=== PATIENT | male | born 1985 | race Caucasian/White ===

== ENCOUNTER 2019-08-21 15:29 | Emergency (ER) | payer OTHER, BC ==
[~2019-08-21] VITALS: Ht 177.8 cm; Wt 136.0 kg
[~2019-08-21 15:29] MED LIST: PENI500T PO
[2019-08-21 15:46] VITALS: BP 125/74
[2019-08-21] MEDS ORDERED: ONDANSETRON ODT 4 MG TAB.RAPDIS ONE (15:53)
[2019-08-21] MEDS ORDERED: ONDANSETRON ODT 4 MG TAB.RAPDIS PO ONE (16:00)
--- NOTE | 2019-08-21 16:17 | PHYS DOC ---
Past History Past Medical History: No Pertinent History Past Surgical History: Other Additional Past Surgical Histo: right foot ortho repair Smoking: Less than 1pk/day Alcohol Use: None Drug Use: None Adult General Chief Complaint Chief Complaint: LACERATION/AVULSION HPI HPI 33-year-old male presents with right thumb laceration. The patient was trying to take apart a sprinkler head at the [employer] where he works when he slipped and it lacerated his right thumb. They attempted to make the bleeding stopped at the penitentiary. There was a mild to moderate amount of bleeding and the patient passed out while sitting in a chair. The patient admits that he does not do well with blood. He did not hurt himself when he passed out. When he woke up, he was feeling fine. He is only feeling mildly nauseous at this time. Patient denies any other injuries or complaints. Review of Systems Review of Systems Constitutional: Denies fever or chills [] Eyes: Denies change in visual acuity, redness, or eye pain [] HENT: Denies nasal congestion or sore throat [] Respiratory: Denies cough or shortness of breath [] Cardiovascular: No additional information not addressed in HPI [] GI: Denies abdominal pain, nausea, vomiting, bloody stools or diarrhea [] : Denies dysuria or hematuria [] Musculoskeletal: Denies back pain or joint pain [] Integument: Laceration of the right thumb[] Neurologic: Denies headache, focal weakness or sensory changes [] Endocrine: Denies polyuria or polydipsia [] All other systems were reviewed and found to be within normal limits, except as documented in this note. Current Medications Current Medications Current Medications Medications (Trade) Dose Ordered Sig/Gerald Start Time Stop Time Status Last Admin Dose Admin Ondansetron HCl (Zofran Odt) 4 mg 1X ONCE 08/21/19 16:00 08/21/19 16:09 DC 08/21/19 16:00 4 MG Allergies Allergies Allergies Coded Allergies Type Severity Reaction Last Updated Verified No Known Drug Allergies 07/08/16 No Physical Exam Physical Exam Constitutional: Well developed, well nourished, no acute distress, non-toxic appearance. [] HENT: Normocephalic, atraumatic, bilateral external ears normal, oropharynx moist, no oral exudates, nose normal. [] Eyes: PERRLA, EOMI, conjunctiva normal, no discharge. [] Neck: Normal range of motion, no tenderness, supple, no stridor. [] Cardiovascular:Heart rate regular rhythm, no murmur [] Lungs & Thorax: Bilateral breath sounds clear to auscultation [] Abdomen: Bowel sounds normal, soft, no tenderness, no masses, no pulsatile masses. [] Skin: 2 cm curvilinear laceration of the right thumb[] Back: No tenderness, no CVA tenderness. [] Extremities: No tenderness, no cyanosis, no clubbing, ROM intact, no edema. [] Neurologic: Alert and oriented X 3, normal motor function, normal sensory function, no focal deficits noted. [] Psychologic: Affect normal, judgement normal, mood normal. [] Current Patient Data Vital Signs Vital Signs Date Time Temp Pulse Resp B/P (MAP) Pulse Ox O2 Delivery O2 Flow Rate FiO2 08/21/19 15:46 97.9 68 14 125/74 (91) 96 Room Air EKG EKG [] Radiology/Procedures Radiology/Procedures [] Course & Med Decision Making Course & Med Decision Making Pertinent Labs and Imaging studies reviewed. (See chart for details) I was able to repair the patient's laceration was sutures. See laceration note for more details. His tetanus is not up-to-date. We updated in the emergency room. I will not place him on antibiotics at this time. [] Dragon Disclaimer Dragon Disclaimer This electronic medical record was generated, in whole or in part, using a voice recognition dictation system. Laceration Repair Lac Repair Indication: []2 cm curvilinear laceration of the right thumb Procedure: I obtained verbal consent from the patient for suture repair of his right thumb laceration. The wound was anesthetized with 1% lidocaine without epinephrine. Total of 2 mL was used. After good anesthesia was achieved, I thoroughly irrigated the wound with normal saline under pressure. There were no foreign bodies found. I repaired the wound with 3 4-0 Ethilon sutures. A clean, dry, nonadherent bandage was applied. Total repaired wound length: 2 cm Other Items: None The patient tolerated the procedure well. Complications: None. Departure Departure: Impression: Primary Impression: Laceration of right thumb Disposition: HOME, SELF-CARE Condition: IMPROVED Referrals: PCP,NO (PCP) Patient Instructions: Fingertip Laceration Problem Qualifiers Primary Impression: Laceration of right thumb Encounter type: initial encounter Damage to nail status: without damage Foreign body presence: without foreign body Qualified Codes: S61.011A - Laceration without foreign body of right thumb without damage to nail, initial encounter GALI MOSQUEDA DO Aug 21, 2019 16:17
[2019-08-21] MEDS ORDERED: DIPHTH,PERTUSS(ACELL),TET TOX 0.5 ML DISP.SYRIN. VAX IM ONE (16:30)
== END 2019-08-21 16:40 | disposition home or self-care (01) ==
LOC: ER 15:29
DX: S61.011A Laceration without foreign body of right thumb without damage to nail, initial encounter (principal); F17.210 Nicotine dependence, cigarettes, uncomplicated; W26.8XXA Contact with other sharp object(s), not elsewhere classified, initial encounter; Y93.89 Activity, other specified; Y92.89 Other specified places as the place of occurrence of the external cause; Y99.8 Other external cause status
CPT/HCPCS: 12001; 90471; 90715; 99283; Q0162

== ENCOUNTER 2019-08-25 20:37 | Emergency (ER) | payer BC, OTHER ==
[~2019-08-25] VITALS: Ht 177.8 cm; Wt 137.7 kg
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
[2019-08-25] MEDS ORDERED: HYDR-1179 PO (23:07)
[2019-08-25] MEDS ORDERED: CYCL-331 PO (23:07)
[2019-08-25] MEDS ORDERED: MORPHINE SULFATE 10 MG/ML SYRINGE. SQ ONE (23:30)
[2019-08-25] MEDS ORDERED: KETOROLAC 60 MG/2 ML VIAL. IM ONE (23:30)
[2019-08-25] MEDS ORDERED: ORPHENADRINE CITRATE 60 MG/2 ML VIAL. IM ONE (23:30)
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
[2019-08-26 00:55] VITALS: BP 123/84
== END 2019-08-26 00:55 | disposition home or self-care (01) ==
LOC: ER 20:37
DX: S39.012A Strain of muscle, fascia and tendon of lower back, initial encounter (principal); M47.897 Other spondylosis, lumbosacral region; F17.210 Nicotine dependence, cigarettes, uncomplicated; V49.9XXA Car occupant (driver) (passenger) injured in unspecified traffic accident, initial encounter; Y93.89 Activity, other specified; Y92.89 Other specified places as the place of occurrence of the external cause; Y99.8 Other external cause status
CPT/HCPCS: 71046; 72125; 72131; 96372; 99285; J1885; J2270; J2360

== ENCOUNTER 2021-01-23 12:26 | Emergency (ER) | payer OTHER ==
[~2021-01-23] VITALS: Ht 177.8 cm; Wt 137.7 kg
[~2021-01-23 12:26] MED LIST changes: +CYCL-331 PO; +HYDR-1179 PO
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
[2021-01-23 14:00] VITALS: BP 138/91
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
== END 2021-01-23 15:23 | disposition home or self-care (01) ==
LOC: ER 12:26
DX: R51.9 Headache, unspecified (principal); R22.0 Localized swelling, mass and lump, head; F17.200 Nicotine dependence, unspecified, uncomplicated; Y08.89XA Assault by other specified means, initial encounter; Y93.89 Activity, other specified; Y92.148 Other place in prison as the place of occurrence of the external cause; Y99.8 Other external cause status
CPT/HCPCS: 70450; 70486; 99285

== ENCOUNTER → 2021-01-26 | Outpatient (CLI) | payer OTHER ==
[2021-01-23 14:00] VITALS: BP 138/91
--- NOTE | 2021-01-26 16:18 | RAD ---
EXAM: XR EXAM OF ANKLE_RIGHT 3VIEWS 01/26/2021 11:25 AM CLINICAL INDICATION: Right ankle pain COMPARISON: None TECHNIQUE: 3 views of the right ankle FINDINGS: No acute fracture. Alignment is normal. Ankle mortise is symmetric and talar dome is intac t. There is a screw traversing the fifth metatarsal, incompletely visualized. No soft tissue abnormal ity. IMPRESSION: No acute osseous abnormality of the right ankle Electronically signed by: Stephanie Johnson MD (01/26/2021 4:16 PM) [id number]
== END ==
LOC: RAD 11:16
DX: M25.571 Pain in right ankle and joints of right foot (principal)
CPT/HCPCS: 73610